=== PATIENT | female | born 1985 | race Caucasian/White ===

== ENCOUNTER 2016-03-19 04:30 | Emergency (ER) | payer OTHER ==
[~2016-03-19] VITALS: Ht 165.1 cm; Wt 55.0 kg
[2016-03-19] MEDS ORDERED: ULTRAM50 MG PO (06:06)
[2016-03-19 06:40] VITALS: BP 110/69
== END 2016-03-19 06:43 | disposition home or self-care (01) ==
LOC: EME 04:30
DX: S70.01XA Contusion of right hip, initial encounter (principal); S30.0XXA Contusion of lower back and pelvis, initial encounter; S20.211A Contusion of right front wall of thorax, initial encounter; S40.011A Contusion of right shoulder, initial encounter; S60.211A Contusion of right wrist, initial encounter; S60.221A Contusion of right hand, initial encounter; Y04.8XXA Assault by other bodily force, initial encounter; Y07.59 Other non-family member, perpetrator of maltreatment and neglect; Y92.480 Sidewalk as the place of occurrence of the external cause; Y93.01 Activity, walking, marching and hiking; Z88.6 Allergy status to analgesic agent; F17.200 Nicotine dependence, unspecified, uncomplicated
CPT/HCPCS: 71101; 73030; 73130; 73502; 99281; 99283